=== PATIENT | female | born 1975 | race Caucasian/White ===

== ENCOUNTER 2017-04-26 21:20 | Emergency (ER) | payer SELFPAY ==
[~2017-04-26] VITALS: Ht 160 cm; Wt 56.0 kg
[2017-04-26] MEDS ORDERED: ONDANSETRON HCL 4MG/2ML VIAL IV STA (21:49)
[2017-04-26] MEDS ORDERED: SODIUM CHLORIDE 0.9% 1,000 ML IV ONE (21:49)
[2017-04-26 22:29] LABS: CLARITY URINE CLEAR (CLEAR); COLOR URINE YELLOW (YELLOW); GLUCOSE URINE NEGATIVE (NEGATIVE); KETONES URINE NEGATIVE (NEGATIVE); LEUKOCYTE ESTERASE URINE NEGATIVE (NEGATIVE); NITRITE URINE NEGATIVE (NEGATIVE); OCCULT BLOOD URINE NEGATIVE (NEGATIVE); PH URINE 5.5 (4.5-8.0); PROTEIN URINE NEGATIVE (NEGATIVE); SPECIFIC GRAVITY URINE 1.007 (1.005-1.030); UROBILINOGEN URINE 0.2 E.U./dL (0.2-1.0)
[2017-04-26 22:43] LABS: *AMPHETAMINES SCREEN URINE NEGATIVE (NEGATIVE); *BARBITURATES SCREEN URINE NEGATIVE (NEGATIVE); *BENZODIAZEPINES SCREEN URINE NEGATIVE (NEGATIVE); *COCAINE SCREEN URINE NEGATIVE (NEGATIVE); CANNABINOID URINE SCREEN NEGATIVE (NEGATIVE); METHADONE URINE SCREEN NEGATIVE (NEGATIVE); OPIATES URINE SCREEN NEGATIVE (NEGATIVE); PHENCYCLIDINE URINE SCREEN NEGATIVE (NEGATIVE)
[2017-04-26 22:46] LABS: BASOPHILS % 1.1 % (0.0-2.0); HEMATOCRIT. 35.8 % (36.0-48.0); HEMOGLOBIN. 12.2 g/dL (12.0-16.0); LYMPHOCYTES % 47.1 % (20.0-50.0); MEAN CORPUSCULAR HEMOGLOBIN 33.4 pg (28.0-32.0); MEAN CORPUSCULAR VOLUME 97.9 fL (81.0-99.0); MEAN PLATELET VOLUME 9.5 fl (7.4-10.4); MONOCYTES % 8.3 % (2.0-8.0); NEUTROPHILS % 37.5 % (40.0-76.0); PLATELET 169 x1000/uL (130-400); RED BLOOD CELL COUNT 3.66 mill/uL (4.2-5.4); RED CELL DISTRIBUTION WIDTH 12.2 % (11.6-14.6)
[2017-04-26 22:51] LABS: HCG SCREEN NEGATIVE
[2017-04-26 23:00] LABS: CARBON DIOXIDE 27 mEq/L (21-32); CHLORIDE 115 mEq/L (98-107); CREATINE KINASE 66 IU/L (26-192)
[2017-04-26 23:09] LABS: ETHANOL BLOOD 443 mg/dL
[2017-04-27] MEDS ORDERED: FOLIC ACID 1 MG, THIAMINE HCL 100 MG, MVI, ADULT NO.1 10 ML in DEXTROSE 5% WATER 1,000 ML IV ONE ×4
[2017-04-27 03:21] VITALS: BP 110/73
== END 2017-04-27 03:21 | disposition home or self-care (01) ==
LOC: ER 22:05
DX: E05.90 Thyrotoxicosis, unspecified without thyrotoxic crisis or storm (principal); T51.0X1A Toxic effect of ethanol, accidental (unintentional), initial encounter; G92 Toxic encephalopathy; Y90.8 Blood alcohol level of 240 mg/100 ml or more; Y92.89 Other specified places as the place of occurrence of the external cause
CPT/HCPCS: 36415; 80053; 80305; 80307; 80329; 81003; 82550; 82962; 84443; 84703; 85025; 96361; 96365; 96366; 96375; 99285; G0482; J2405; J3411; J3490; J7030; J7070; Z7610